=== PATIENT | female | born 1985 | race Caucasian/White ===

== ENCOUNTER 2016-09-27 05:17 | Inpatient (IN) | payer OTHER ==
[2016-09-24 10:35] VITALS: Ht 170.2 cm; Wt 95.6 kg
[2016-09-27] VITALS (29 sets, daily range): BP systolic 105–142; BP diastolic 54–90; PULSE 73–106; RESP 14–24
[~2016-09-27] VITALS: Ht 170.2 cm; Wt 95.6 kg
[2016-09-27] MEDS ORDERED: CEFAZOLIN 2 GM/50 ML (PMX) 50 ML IVPB SCH (06:00)
[2016-09-27] MEDS ORDERED: FENTAnyl 50 MCG/ML VIAL ONE (06:10)
[2016-09-27] MEDS ORDERED: ROCURONIUM 50 MG INJ ONE (06:10)
[2016-09-27] MEDS ORDERED: MIDAZOLAM 1 MG/ML 2 ML INJ ONE (06:10)
[2016-09-27] MEDS ORDERED: GLYCOPYRROLATE 0.4 MG INJ ONE (06:10)
[2016-09-27] MEDS ORDERED: PROPOFOL 20 ML ONE (06:10)
[2016-09-27] MEDS ORDERED: LIDOCAINE 2% (SDV) 5 ML INJ ONE (06:10)
[2016-09-27] MEDS ORDERED: NEOSTIGMINE 3 MG/3 ML SYRINGE ONE (06:10)
[2016-09-27] MEDS ORDERED: DEXAMETHASONE 4 MG/ML 1 ML INJ ONE (06:11)
[2016-09-27] MEDS ORDERED: ONDANSETRON 4 MG INJ ONE (06:11)
[2016-09-27] MEDS ORDERED: LIDOCAINE 4% CR ONE (06:14)
[2016-09-27] MEDS ORDERED: HYDROmorphONE (0.2 MG/ML) 10ML SYG IV PRN ×2 (06:30)
[2016-09-27] MEDS ORDERED: ONDANSETRON 4 MG INJ IV PRN ×2 (06:30→09:30)
[2016-09-27] MEDS ORDERED: LABETALOL HCL 20MG INJ IV PRN (06:30)
[2016-09-27] MEDS ORDERED: DIPHENHYDRAMINE 50 MG INJ IV PRN (06:30)
[2016-09-27] MEDS ORDERED: morphine (1 MG/ML) 10ML SYRINGE IV PRN ×2 (06:30)
[2016-09-27] MEDS ORDERED: ATROPINE 1 MG/10 ML SYRINGE IV PRN (06:30)
[2016-09-27] MEDS ORDERED: OXYCODONE/ACETAMINOPHEN (5/325) TAB PO PRN ×2 (06:30)
[2016-09-27] MEDS ORDERED: MEPERIDINE 25 MG INJ IV PRN (06:30)
[2016-09-27] MEDS ORDERED: MIDAZOLAM 1 MG/ML 2 ML INJ IV PRN (06:30)
[2016-09-27] MEDS ORDERED: FENTAnyl 50 MCG/ML VIAL IV PRN (06:30)
[2016-09-27] MEDS ORDERED: hydrALAzine 20 MG INJ IV PRN (06:30)
[2016-09-27] MEDS ORDERED: EPHEDrine SULFATE 50 MG/5 ML SYG IV PRN (06:30)
--- NOTE | 2016-09-27 06:49 | HPN ---
Date/Time of Note Date/Time of Note DATE: 09/27/16 TIME: 06:49 Interval H&P Admission Note Pt. seen H&P reviewed: No system changes BOB UREÑA MD September 27, 2016 06:49
[2016-09-27] MEDS ORDERED: HYDR-906 PO (07:15)
[2016-09-27] MEDS ORDERED: ALPR2TAB PO (07:15)
[2016-09-27] MEDS ORDERED: LABETALOL HCL 20MG INJ ONE (07:26)
[2016-09-27] MEDS ORDERED: GELATIN SIZE 100 SPONGE ONE (07:29)
[2016-09-27] MEDS ORDERED: BUPIVACAINE 0.25% (MPF) 10 ML 10 ML VIAL ONE (07:29)
[2016-09-27] MEDS ORDERED: POLYMYXIN/BACITRACIN 1L IRRIG ONE (07:30)
[2016-09-27] MEDS ORDERED: THROMBIN 5000 UNIT VIAL ONE (07:30)
[2016-09-27] MEDS ORDERED: hydrALAzine 20 MG INJ ONE (07:36)
--- NOTE | 2016-09-27 09:10 | RADRPT ---
PROCEDURE: Intraoperative XR. CLINICAL INDICATION: Intraoperative radiograph during lumbar decompression L4-S1. TECHNIQUE: Spot intraoperative lateral lumbar x-ray image was provided. The images were reviewed on a high-resolution PACS workstation. COMPARISON: None available FINDINGS: Spot intraoperative lateral lumbar view were provided during lumbar decompression. The images demon strate metallic probes at the level of L4 and L5-S1. IMPRESSION: 1. Spot intraoperative lateral lumbar view during lumbar decompression were provided. 2. Please see operative report of the same day for further information. RPTAT: HGAS .Demarco Lord MD, Date Time Electronically viewed and signed by .Demarco Lord MD, on 09/27/2016 09:10 .S/
--- NOTE | 2016-09-27 09:11 | RADRPT ---
PROCEDURE: Intraoperative XR. CLINICAL INDICATION: Intraoperative radiograph during lumbar decompression L4-S1. TECHNIQUE: Spot intraoperative lateral lumbar x-ray image was provided. The images were reviewed on a high-resolution PACS workstation. COMPARISON: None available FINDINGS: Spot intraoperative lateral lumbar view were provided during lumbar decompression. The images demon strate postoperative changes from laminectomy with surgical instrumentation at the level of L4-5 and L5-S1. IMPRESSION: 1. Spot intraoperative lateral lumbar view during lumbar decompression were provided. 2. Please see operative report of the same day for further information. RPTAT: HGAS .Demarco Lord MD, Date Time Electronically viewed and signed by .Demarco Lord MD, on 09/27/2016 09:10 .S/
[2016-09-27] MEDS: DEXTROSE 5%-0.45% NACL 1,000 ML IV SCH ×4 (09:21→23:36)
[2016-09-27] MEDS: FENTAnyl 50 MCG/ML VIAL IV PRN ×2 (09:23→09:53)
[2016-09-27] MEDS: HYDROmorphONE (0.2 MG/ML) 10ML SYG IV PRN ×2 (09:24→09:54)
[2016-09-27] MEDS: morphine (1 MG/ML) 10ML SYRINGE IV PRN ×2 (09:25→09:56)
[2016-09-27] MEDS ORDERED: NALOXONE (0.4 MG/ML) INJ IV PRN (09:30)
[2016-09-27] MEDS ORDERED: DIPHENHYDRAMINE 50 MG CAP PO PRN (09:30)
[2016-09-27] MEDS ORDERED: TRIMETHOBENZAMIDE 100 MG/ML VIAL IM PRN (09:30)
[2016-09-27] MEDS ORDERED: AL HYDROX/MG HYDROX/SIMETH 30 ML CUP PO PRN (09:30)
[2016-09-27] MEDS ORDERED: PROCHLORPERAZINE 10 MG TAB PO PRN (09:30)
[2016-09-27] MEDS ORDERED: HYDROCODONE/APAP (5/325) TAB PO PRN (09:30)
[2016-09-27] MEDS ORDERED: NACL 0.9% 3 ML SYG IV SCH (09:30)
[2016-09-27] MEDS ORDERED: DIAZEPAM 5 MG/ML SYG IM PRN (09:30)
[2016-09-27] MEDS ORDERED: ACETAMINOPHEN 325 MG TAB PO PRN (09:30)
[2016-09-27] MEDS ORDERED: ZOLPIDEM 5 MG TAB PO PRN (09:30)
[2016-09-27] MEDS ORDERED: CEPASTAT LOZENGE MT PRN (09:30)
[2016-09-27] MEDS ORDERED: BETHANECHOL 25 MG TAB PO PRN (09:30)
[2016-09-27] MEDS: HYDROmorphONE 0.2 MG/ML PCA IV SCH ×2 (10:05→19:13)
--- NOTE | 2016-09-27 10:33 | OPR ---
DATE OF OPERATION: 09/27/2016 PREOPERATIVE DIAGNOSES: 1. Herniated disk, L4-5 and L5-S1 centrally and to left. 2. Epidural lipomatosis. 3. Spinal stenosis L4 and L5. POSTOPERATIVE DIAGNOSES: 1. Herniated disk, L4-5 and L5-S1 centrally and to left. 2. Epidural lipomatosis. 3. Spinal stenosis at L4 and L5. OPERATION PERFORMED: 1. Central decompressive laminectomy at L4. 2. Central decompressive laminectomy at L5. 3. Microdiskectomy, L4-5 and L5-S1 on the left. 4. Excisional biopsy of epidural lipomatosis L4 and L5. 5. Medial facetectomy and foraminotomy, L4-5 and L5-S1 bilaterally. 6. Cosmetic wound closure (6 cm). 7. Lateral localized lumbar radiographs (2). 8. Intraoperative nerve monitoring (2 hours). SURGEON: Danny Sam MD SYSTEMS ADMINISTRATION ANALYST: Hawa Kramer PA-C ANESTHESIA: General endotracheal. ANESTHESIOLOGIST: Nikolai Mcfarland MD ESTIMATED BLOOD LOSS: 10 mL-none replaced. DRAINS: Two medium Hemovac drains employed. COMPLICATIONS: None. PERTINENT HISTORY AND PHYSICAL: This is a 31-year-old female with persistent back and lower extremi ty complaints bilaterally, left greater than right, which has been unrelieved by conservative manage ment. She has undergone a number of diagnostic studies including an MRI of the lumbar spine which d emonstrated disk herniations at L4-5 and L5-S1 centrally and to left as well as epidural lipomatosis and spinal stenosis. Treatment options were discussed with the patient, who elected to proceed wit h surgery. OPERATIVE FINDINGS AT SURGERY: A small moderate central and left paracentral herniation at L4-5 and a small left paracentral herniation L5-S1 were confirmed. There was moderate degree of epidural li pomatosis. The baseline intraoperative nerve monitoring revealed a decrease in the L5 potentials bi laterally of 20% and the S1 potentials bilaterally of 20%. These all returned to normal at the comp letion of surgery. OPERATIVE PROCEDURE: With the patient in supine position after satisfactory induction of general en dotracheal anesthesia by Dr. Mcfarland, the patient was turned to the prone kneeling position on the [facility] frame. All pressure points were carefully padded. Back was prepped and draped in usual ster ile fashion. Athrombic pumps were applied to the legs below the knees to prevent venous stasis duri ng and after the procedure. An indwelling Amos catheter was also placed preoperatively to facilita te bladder drainage during and after the procedure. Two spinal needles were placed next to what was felt to be the L4 and L5 spinous processes, lateral roentgenogram was taken to confirm anatomic loc alization. A 6 cm incision was then carried midline over the spinous process of L4 and L5 after ski n was infiltrated with 0.25% Marcaine without epinephrine for postoperative analgesia. Superficial retractors were placed and hemostasis secured with electrocautery. Throughout the procedure, copiou s amounts of antibacterial irrigating solution were used to periodically irrigate the wound. The fa scia was incised in midline with a hot knife and a bilateral subperiosteal dissection carried out at L4 and L5. Deep retractors were placed and deep hemostasis secured with electrocautery. A second intraoperative radiograph was taken with David clamps placed in what was felt to be the spinous pro cess of L4 and L5 and this was confirmed with second x-ray. A central decompressive laminectomy was then carried out at L4 and L5 using a Catalina right-angle bone rongeur, Zhangell rongeur, Kerbrie p unches and curettes. Ligamentum flavum was incised with sharp dissection. The operating microscope was then moved into place. At this point, there was moderately severe degree of epidural lipomatos is and this was peeled off of the dura at L4 and L5 and sent to laboratory for pathologic study. At tention was then turned to the L5-S1 disk on the left. The S1 root was mobilized medially and prote cted with Meryl nerve retractor using microdissection technique. This revealed a herniation of t he L5-S1 disk. A 15 blade knife used to cut a rectangular window in the annulus and posterior longi tudinal ligament and multiple degenerative disk fragments were harvested with pituitary rongeurs and sent to laboratory for pathologic study. Additional fragments were harvested with Ana curettes . A thorough search of the floor of the canal was made with an arthroscopic probe. No additional f ragments were encountered. The epidural hemostasis was secured with bipolar electrocautery on low s etting. Anesthesiologist was asked to perform a Valsalva maneuver at 40 mmHg and no spinal fluid le ak was noted. Attention then turned to the L4-5 disk where the L5 root was mobilized on the left and protected wit h D'Errico nerve root retractor using microdissection technique. This revealed a small to moderate herniation of the L4-5 disk. A 15 blade knife used to cut a rectangular window in the annulus and p osterior longitudinal ligament at L4-L5, and multiple degenerative disk fragments were harvested wit h pituitary rongeurs and sent to laboratory for pathologic study. Additional fragments were harvest ed using Ana curettes. A thorough search of the floor of the canal was made with an arthroscopi c probe. No additional fragments were encountered. The epidural hemostasis was secured with bipola r electrocautery on low setting. The anesthesiologist was asked perform a second Valsalva maneuver at 40 mmHg, no spinal fluid leak was noted. A medial facetectomy and foraminotomy was accomplished at L4-5 bilaterally using small hand osteotome, mallet, Kerrison punches and curettes. The wound wa s then closed in layers over 2 medium Hemovac drains, one below the fascia and one above the fascia using #1 Vicryl [id number] approximating sutures in deep paralumbar musculature, the wound was closed in layers over 2 medium Hemovac drains using a #1 Stratafix suture on the deep paralumbar mus culature and deep fascia of the back, 2-0 Stratafix sutures in subcu tissue, and a 4-0 Vicryl subcut icular cosmetic closing suture on the skin. Dermabond and sterile compressive dressings were applie d. Patient tolerated procedure well, was then turned to the supine position onto her bed at which t deisy she was then extubated by Dr. Mcfarland. She was transported to the recovery room in satisfactory condition. At the conclusion of the procedure, sponge, instrument, and needle counts were all corre ct. NEED FOR TELEMETRY TECHNICIAN: During this spinal surgical procedure, my assistant professor of chemistry was used to retrac t and protect the spinal nerves and dural sac. My assistant professor of chemistry also employed the suction catheters to e vacuate blood from the surgical field to improve visualization of the neural structures. The assista nt was medically necessary to facilitate the completion of the surgery in a safe and expeditious man ner. State of [place] regulations, as well as hospital bylaws, preclude the use of non-licensed [facility] care personnel such as operating room technicians, to perform these functions. Throughout the procedure, neural monitoring was carried out by [id number] including EMG, SSEP and MEP monitoring of the L3, L4, L5 and S1 nerve roots bilaterally along with s alka cord potentials. These were interpreted by neurologist employed by [employer]. Dictated By: DANNY PETERSON/SUSANNAH Conf#: [id number] DID#: [id number]
[2016-09-27] MEDS: DIAZEPAM 5 MG TAB PO PRN (11:15)
[2016-09-27] MEDS: CEFAZOLIN 1 GM/50 ML (PMX) 50 ML IVPB SCH ×2 (11:16→18:13)
[2016-09-27 13:16] LABS: ADD UMIC YES; URINE BILIRUBIN (Dip) NEGATIVE (NEGATIVE); URINE BLOOD (Dip) 1+ (NEGATIVE); URINE COLOR LT. YELLOW (YELLOW); URINE GLUCOSE (Dip) NEGATIVE (NEGATIVE); URINE KETONES (Dip) 15 (NEGATIVE); URINE LEUKOCYTE ESTERASE (Dip) NEGATIVE (NEGATIVE); URINE NITRITE (Dip) NEGATIVE (NEGATIVE); URINE TOTAL PROTEIN (Dip) TRACE (NEGATIVE); URINE UROBILINOGEN (Dip) 0.2 E.U./dL (0.1-1.0)
[2016-09-27 13:30] LABS: BACTERIA,URINE MODERATE
--- NOTE | 2016-09-27 15:11 | CONS ---
DATE OF ADMISSION: 09/27/2016 DATE OF CONSULTATION: 09/27/2016 REQUESTING PHYSICIAN: Primary team. CHIEF COMPLAINT: This is a 31-year-old female status post laminectomy for low back pain. HISTORY OF PRESENT ILLNESS: A 31-year-old female with past medical history of low back pain for abo ut 1 year, getting progressively worse and also anxiety who was brought in for an elective procedure today. She underwent central decompressive laminectomy at L4 and L5, as well as a microdiskectomy at L4-L5 and L5-S1 on the left and also excisional biopsy of the epidural lipomatosis of L4 and L5 a nd also the medial facetectomy and foraminotomy at L4-L5 and L5-S1 bilaterally. The patient has morena erated the procedure well. Presently, she is on Dilaudid pump. She is awake and alert, has minimal pain symptoms as well. Apparently, she has been having low back pain for the last 1 year, so that has been unrelieved by conservative management. Treatment options were apparently discussed with th e patient with the primary team and she decided to proceed with surgery, which happened again earlaleksey r today. No nausea, vomiting, no upper or lower GI bleeding, no diarrhea, no constipation. PAST MEDICAL HISTORY: As stated above. ALLERGIES: NO KNOWN DRUG ALLERGIES. MEDICATIONS AT HOME: Xanax 2 mg p.r.n. FAMILY HISTORY: Noncontributory. SOCIAL HISTORY: She smokes 5 cigarettes a day for the past 7 years. She denies any alcohol use or IV drug abuse. PAST SURGICAL HISTORY: Other than today, no other. PAST SURGICAL HISTORY: Denies. PHYSICAL EXAMINATION: VITAL SIGNS: Stable. GENERAL: The patient is lying in bed, answering questions appropriately. No acute distress. HEENT: Pupils equal, round, react to light. Extraocular muscles intact. NECK: Supple, no thyromegaly. LUNGS: Clear to auscultation bilaterally. CARDIOVASCULAR: S1, S2 heard. No rubs or gallops. ABDOMEN: Soft, nontender, nondistended. Normal bowel sounds. No rebound or guarding. MUSCULOSKELETAL: No lower extremity edema bilaterally. NEUROLOGIC: No focal deficits. LABORATORIES: There is no new lab work from today. There is a UA that shows negative nitrites, neg ative leukocyte esterase. ASSESSMENT AND PLAN: This is a 31-year-old female status post central decompressive laminectomy of L4-L5 and also microdiskectomy L4-L5 and L5-S1 on the left today after having low back pain getting progressively worse over the last year. 1. Low back pain status post laminectomy. Again, continue to follow postop recommendations per [facility] surgery team including pain control medications, physical therapy and lab work. 2. Anxiety. For now, continue Valium. The patient does take Xanax at home. When we asked her wha t she would prefer, she says that she will stick with Valium that has already been ordered by the pr imary team, so continue that for now. If there are any issues for controlling of her symptoms, cons ider switching Xanax. We will continue to follow along with you. Dictated By: MOUNIKA VERONICA Conf#: [id number] DID#: [id number]
[2016-09-27] MEDS: RANITIDINE 150 MG TAB PO SCH (20:50)
[2016-09-27] MEDS ORDERED: ALPRAZOLAM 1 MG TAB PO PRN (21:00)
[2016-09-28] VITALS: BP 100/53; PULSE 79; RESP 20
[2016-09-28] MEDS: CEFAZOLIN 1 GM/50 ML (PMX) 50 ML IVPB SCH ×2 (00:23→05:44)
[2016-09-28 05:26] LABS: HEMATOCRIT 38.5 % (37.0-47.0); HEMOGLOBIN 12.9 g/dl (12.0-16.0)
[2016-09-28 06:03] LABS: CALCIUM 8.9 mg/dl (8.4-10.2); CREATININE 0.52 mg/dl (0.44-1.00)
--- NOTE | 2016-09-28 07:19 | PN ---
Date/Time of Note Date/Time of Note DATE: 09/28/16 TIME: 07:17 Assessment/Plan Lines/Catheters IV Catheter Type (from Nrs): Peripheral IV Amos in Place (from Nrsg): Yes Subjective 24 Hr Interval Summary The patient is postop day #1 following a microdiscectomy at L4-5 and L5-S1 with decompressive laminectomy at both levels. She is afebrile. She is resting comfortably in bed. Neurovascular structures are intact distally. Her a.m. labs are unremarkable. Her Hemovac drain had minimal output and was removed. Her incision is clean and dry and was redressed. I anticipate she will be discharged from the hospital pending clearance by physical therapy. She was given strict discharge precautions and instructions. Exam/Review of Systems Vital Signs Vitals Vital Signs Date Time Temp Pulse Resp B/P Pulse Ox O2 Delivery O2 Flow Rate FiO2 09/28/16 05:41 20 09/28/16 00:00 98.6 79 100/53 97 Nasal Cannula 2.0 Intake and Output 09/27/16 09/27/16 09/28/16 15:00 23:00 07:00 Intake Total 1570 ml 2120 ml 1620 ml Output Total 270 ml 2940 ml 4070 ml Balance 1300 ml -820 ml -2450 ml Results Result Diagram: 09/28/16 0424 09/28/16 0424 BOB UREÑA MD September 28, 2016 07:19
[2016-09-28 07:57] VITALS: BP 117/61; RESP 20
[2016-09-28] MEDS: FERROUS SULFATE (EC) 325 MG TAB PO SCH ×2 (08:37→13:01)
[2016-09-28] MEDS: BETHANECHOL 25 MG TAB PO PRN ×2 (08:38→13:02)
[2016-09-28] MEDS: RANITIDINE 150 MG TAB PO SCH (08:38)
[2016-09-28] MEDS: HYDROCODONE/APAP (5/325) TAB PO PRN ×3 (08:39→17:12)
[2016-09-28] MEDS ORDERED: ASCORBIC ACID 500 MG TAB PO SCH (09:00)
[2016-09-28] MEDS ORDERED: DOCUSATE SODIUM 100 MG CAP PO SCH (09:00)
[2016-09-28 09:31] LABS: ADD UMIC NO; URINE BILIRUBIN (Dip) NEGATIVE (NEGATIVE); URINE BLOOD (Dip) NEGATIVE (NEGATIVE); URINE COLOR LT. YELLOW (YELLOW); URINE GLUCOSE (Dip) NEGATIVE (NEGATIVE); URINE KETONES (Dip) NEGATIVE (NEGATIVE); URINE LEUKOCYTE ESTERASE (Dip) NEGATIVE (NEGATIVE); URINE NITRITE (Dip) NEGATIVE (NEGATIVE); URINE TOTAL PROTEIN (Dip) NEGATIVE (NEGATIVE); URINE UROBILINOGEN (Dip) 0.2 E.U./dL (0.1-1.0)
--- NOTE | 2016-09-28 10:24 | CONS ---
Date/Time of Note Date/Time of Note DATE: 09/28/16 TIME: 10:21 Consult Date/Type/Reason Admit Date/Time September 27, 2016 at 05:17 Initial Consult Date Subjective No acute events overnight. Off TOOLS [employer]ELOPER pump. Objective Vital Signs Date Time Temp Pulse Resp B/P Pulse Ox O2 Delivery O2 Flow Rate FiO2 09/28/16 07:57 97.6 66 20 117/61 100 09/28/16 00:00 Nasal Cannula 2.0 Intake and Output 09/27/16 09/27/16 09/28/16 15:00 23:00 07:00 Intake Total 1570 ml 2120 ml 1620 ml Output Total 270 ml 2940 ml 4070 ml Balance 1300 ml -820 ml -2450 ml Exam GENERAL: The patient is lying in bed, answering questions appropriately. No acute distress. HEENT: Pupils equal, round, react to light. Extraocular muscles intact. NECK: Supple, no thyromegaly. LUNGS: Clear to auscultation bilaterally. CARDIOVASCULAR: S1, S2 heard. No rubs or gallops. ABDOMEN: Soft, nontender, nondistended. Normal bowel sounds. No rebound or guarding. MUSCULOSKELETAL: No lower extremity edema bilaterally. NEUROLOGIC: No focal deficits. Results/Medications Result Diagram: 09/28/16 0424 09/28/16 0424 Results 24 hrs Laboratory Tests Test 09/28/16 04:24 09/28/16 07:45 Hemoglobin 12.9 Hematocrit 38.5 Sodium Level 136 Potassium Level 4.0 Chloride Level 104 Carbon Dioxide Level 26 Anion Gap 10 Blood Urea Nitrogen 2 L Creatinine 0.52 Glucose Level 117 Calcium Level 8.9 Urine Color LT. YELLOW Urine Clarity CLEAR Urine pH 6.0 Urine Specific Howell <=1.005 L Urine Ketones NEGATIVE Urine Nitrite NEGATIVE Urine Bilirubin NEGATIVE Urine Urobilinogen 0.2 E.U./dL Urine Leukocyte Esterase NEGATIVE Urine Hemoglobin NEGATIVE Urine Glucose NEGATIVE Urine Total Protein NEGATIVE Medications Current Medications Dextrose/Sodium Chloride (D5-1/2ns) 1,000 ml @ 100 mls/hr Q10H IV Last administered on 09/27/16t 23:36; Admin Dose 100 MLS/HR; Start 09/27/16 at 09:21 Acetaminophen/ Hydrocodone Bitart (Homer (5/325)) 1 tab Q4H PRN PO PAIN LEVEL 1 -5; Start 09/27/16 at 09:30 Acetaminophen/ Hydrocodone Bitart (Homer (5/325)) 2 tab Q4H PRN PO PAIN LEVEL 6 -10 Last administered on 09/28/16 08:39; Admin Dose 2 TAB; Start 09/27/16 at 09: 30 Zolpidem Tartrate (Ambien) 5 mg HS PRN PO INSOMNIA; Start 09/27/16 at 09:30 Prochlorperazine (Compazine) 10 mg Q4H PRN PO NAUSEA AND/OR VOMITING; Start 09/27/16 at 09:30 Trimethobenzamide HCl (Tigan) 200 mg Q4H PRN IM NAUSEA AND/OR VOMITING; Start 09/27/16 at 09:30 Ondansetron HCl (Zofran Inj) 4 mg Q6H PRN IV NAUSEA AND/OR VOMITING; Start 09/27 at 09:30 Al Hydrox/Mg Hydrox/Simethicone (Mag-Al Plus) 15 ml Q4H PRN PO CONSTIPATION; Start 09/27/16 at 09:30 Docusate Sodium (Colace) 100 mg BID PO Last administered on 09/28/16 08:37; Admin Dose 100 MG; Start 09/28/16 at 09:00 Acetaminophen (Tylenol Tab) 650 mg Q4H PRN PO TEMP GREATER THAN 101F OR REYNOLDS; Start 09/27/16 at 09:30 Ascorbic Acid (Vitamin C) 1,000 mg BID PO Last administered on 09/28/16 08:37; Admin Dose 1,000 MG; Start 09/28/16 at 09:00 Ferrous Sulfate (Ferrous Sulfate (Ec)) 325 mg TID PO Last administered on 08:37; Admin Dose 325 MG; Start 09/28/16 at 09:00 Ranitidine HCl (Zantac) 150 mg BID PO Last administered on 09/28/16 08:38; Admin Dose 150 MG; Start 09/27/16 at 21:00 Diazepam (Valium) 5 mg Q4H PRN PO MUSCLE SPASMS Last administered on 09/27/16 11:15; Admin Dose 5 MG; Start 09/27/16 at 09:30 Diazepam (Valium) 5 mg Q4H PRN IM MUSCLE SPASMS; Start 09/27/16 at 09:30 Phenol (Cepastat Lozenge) 1 lozenge PRN PRN MT SORE THROAT Last administered on 09/27/16 11:15; Admin Dose 1 LOZENGE; Start 09/27/16 at 09:30 Diphenhydramine HCl (Benadryl) 50 mg Q6H PRN PO PRURITUS; Start 09/27/16 at 09: 30 Hydromorphone HCl (Dilaudid TOOLS DEVELOPER) Q4PCA IV Last administered on 09/27/16 19:13 ; Admin Dose 6 MG; Start 09/27/16 at 09:30 Naloxone HCl (Narcan) 0.2 mg Q2M PRN IV RR 8 BREATHS/MIN OR LESS; Start at 09:30 Alprazolam (Xanax) 1 mg Q8H PRN PO ANXIETY Last administered on 09/27/16 23:36 ; Admin Dose 1 MG; Start 09/27/16 at 21:00 Bethanechol Chloride (Urecholine) 25 mg PRN PRN PO UNABLE TO VOID Last administered on 09/28/16 08:38; Admin Dose 25 MG; Start 09/28/16 at 08:00 Assessment/Plan Chief Complaint/Hosp Course ASSESSMENT AND PLAN: 31-year-old female status post central decompressive laminectomy of L4-L5 and also microdiskectomy L4-L5 and L5-S1 on the left today after having low back pain getting progressively worse over the last year. POD # 1. 1. Low back pain status post laminectomy - POD # 1. Again, continue to follow postop recommendations per primary surgery team including pain control medications, physical therapy and lab work. 2. Anxiety. For now, continue Xanax prn. We will continue to follow along with you. Problems: MOUNIKA ACOSTA September 28, 2016 10:24
[2016-09-28] MEDS: DIAZEPAM 5 MG TAB PO PRN ×3 (11:18→18:58)
[2016-09-28] MEDS: DEXTROSE 5%-0.45% NACL 1,000 ML IV SCH (15:21)
== END 2016-09-28 19:30 | disposition home or self-care (01) | DRG 520 ==
LOC: REC 05:17 → MS1 10:59
PROVIDERS: ADMIT Orthopaedic Surgery; ATTEND Orthopaedic Surgery
PROC: 0SB40ZZ Excision of Lumbosacral Disc, Open Approach (ICD-10-PCS; 2016-09-27)
PROC: 4A1104G Monitoring of Peripheral Nervous Electrical Activity, Intraoperative, Open Approach (ICD-10-PCS; 2016-09-27)
PROC: 01NB0ZZ Release Lumbar Nerve, Open Approach (ICD-10-PCS; principal; 2016-09-27 07:00)
DX: M51.27 Other intervertebral disc displacement, lumbosacral region (principal); E66.01 Morbid (severe) obesity due to excess calories; M48.07 Spinal stenosis, lumbosacral region; Z68.33 Body mass index [BMI] 33.0-33.9, adult; Z87.891 Personal history of nicotine dependence; F41.9 Anxiety disorder, unspecified
CPT/HCPCS: 72020; 80048; 81001; 81003; 84703; 85014; 85018; 86850; 86900; 86901; 86920; 87086; 88304; 97116; 97530; J0360; J0690; J1100; J1170; J2250; J2270; J2405; J2710; J3010; J7042